=== PATIENT | male | born 1985 | race Caucasian/White ===

== ENCOUNTER 2020-12-21 08:48 | Inpatient (IN) | payer SELFPAY ==
[2020-12-21] VITALS (18 sets, daily range): BP systolic 95–152; BP diastolic 49–77
[~2020-12-21] VITALS: Ht 152.4 cm; Wt 62.1 kg
--- NOTE | 2020-12-21 08:48 | NUR ---
PT RC FROM THE STREET C/O ETOH "FOUND HIM LAYING IN THE PARKING LOT" PT IS AAOX0, NOT IN RESPIRATORY DISTRESS, HOOKED TO DIRECTOR PROCESS ENGINEERING AND O2 VIA NC AT 3LPM. KEPT RESTED AND COMFORTABLE. WILL CONTINUE TO MONITOR.
--- NOTE | 2020-12-21 09:20 | NUR ---
IV LINE ESTABLISHED BLOOD DRAWN AND SENT TO LAB.
[2020-12-21] MEDS ORDERED: IV NS 0.9% 1,000 ML BAG IV ONE (09:30)
[2020-12-21 09:32] LABS: BASOPHILS % (AUTO) 0.5 % (0.0-2.0); EOSINOPHILS % (AUTO) 0.1 % (0.0-6.0); HEMATOCRIT 28 % (39-51); HEMOGLOBIN 9.4 g/dL (13.5-17.5); LYMPHOCYTES # (AUTO) 0.5 K/uL (0.8-4.8); LYMPHOCYTES % (AUTO) 13.6 % (20.0-44.0); MEAN CORPUSCULAR HGB CONC 33 g/dl (31.0-36.0); MEAN CORPUSCULAR VOLUME 90 fL (80-96); MONOCYTES # (AUTO) 0.3 K/uL (0.1-1.30); MONOCYTES % (AUTO) 8.1 % (2.0-12.0); NEUTROPHILS # (AUTO) 2.6 K/uL (1.8-8.9); NEUTROPHILS % (AUTO) 77.7 % (43.0-81.0); RED BLOOD CELL COUNT(AUTO) 3.15 MIL/uL (4.5-6.0); WHITE BLOOD COUNT (AUTO) 3.4 K/uL (4.3-11.0)
[2020-12-21 09:35] LABS: PLATELET COUNT (AUTO) 13 K/uL (150-450)
--- NOTE | 2020-12-21 09:39 | NUR ---
PT IS WHEELED TO CT SCAN VIA [facility].
[2020-12-21 09:52] LABS: BILIRUBIN,DIRECT 1.2 mg/dL (0.0-0.2); BILIRUBIN,TOTAL 2.2 mg/dL (0.2-1.0); CALCIUM, SERUM 8.2 mg/dL (8.5-10.1); CREATININE 0.8 mg/dL (0.6-1.3); POTASSIUM 3.1 mmol/L (3.5-5.1); TOTAL PROTEIN, SERUM 8.1 g/dL (6.4-8.2)
[2020-12-21] MEDS ORDERED: PROPOFOL 100 ML ONE (09:55)
--- NOTE | 2020-12-21 09:58 | NUR ---
PROPOFOL 100MG IVP GIVEN PER .
--- NOTE | 2020-12-21 10:00 | NUR ---
INTUBATION DONE BY . ET SIZE 7.5, 26MM AT THE LIP. POSITIVE CHEST RISE, BREATHSOUND EQUAL BILATERALLY.
--- NOTE | 2020-12-21 10:25 | NUR ---
DR. PATTEN SPEAKING WITH DR. SHERMAN.
[2020-12-21] MEDS ORDERED: PROPOFOL 200 MG/20 ML VIAL IV ONE (10:30)
[2020-12-21] MEDS ORDERED: PROPOFOL 1,000 MG/100 ML BOTTLE IV ONE (10:30)
[2020-12-21] MEDS ORDERED: IV PREMIX D5 1/2NS + KCL 1,000 ML IV ONE ×2 (10:30→10:34)
--- NOTE | 2020-12-21 10:30 | NUR ---
PICC LINE RN AT BEDSIDE.
--- NOTE | 2020-12-21 10:30 | NUR ---
MOVE SHEET SUBMITTED AND CALLED FOR ICU BED.
--- NOTE | 2020-12-21 10:33 | NUR ---
[facility] CALLED TANK CREWMEMBER PAGED.
--- NOTE | 2020-12-21 10:41 | NUR ---
covid 19 swab collected and sent to lab.
[2020-12-21 11:22] LABS: ABG BASE EXCESS -3.3 mmol/L; ABG OXYGEN SATURATION 98.9 % (92.0-98.5); ABG PCO2 30.3 mmHg (35.0-45.0); ABG PH 7.443 (7.350-7.450); ABG PO2 511.3 mmHg (75.0-100.0); AaDO2 171.4 mmHg; COHb 0.3 % (0.5-1.5); MetHb 0.6 % (0.0-1.5); PEEP,BG 5 cm H2O; SITE, ABG Right Radial; VENT MODE, BG AC 100%; VT, ABG 500 mL
[2020-12-21] MEDS ORDERED: ONDANSETRON HCL/PF 4 MG/2 ML VIAL IVP PRN (12:00)
[2020-12-21] MEDS ORDERED: MAGNESIUM HYDROXIDE 30 ML UDC PO PRN (12:00)
[2020-12-21] MEDS ORDERED: DEXAMETHASONE SOD PHOSPHATE 4 MG in IV D5W 50 ML IV SCH (12:00)
[2020-12-21] MEDS ORDERED: MAG HYDROX/AL HYDROX/SIMETH 30 ML UDC PO PRN (12:00)
[2020-12-21] MEDS ORDERED: ACETAMINOPHEN 325 MG TABLET PO PRN (12:00)
[2020-12-21] MEDS ORDERED: Z GUARD REMEDY 2 OZ OINT TP PRN (12:00)
[2020-12-21 12:06] LABS: LYMPHOCYTES % (MANUAL) 10 % (16-48); MONOCYTES % (MANUAL) 2 % (0-11.0); NEUTROPHILS % (MANUAL) 88 (42-76)
--- NOTE | 2020-12-21 12:22 | NUR ---
GOT ICU BED 254
--- NOTE | 2020-12-21 12:27 | NUR ---
REPORT GIVEN TO LORRAINE GOLDEN FOR LUPE. WITH ONGOING IVF AND PROPOFOL TITRATE TO EFFECT.
[2020-12-21] MEDS: DEXAMETHASONE SOD PHOSPHATE 4 MG/ML VIAL IV SCH ×3 (13:36→23:43)
[2020-12-21] MEDS: IV D5/0.45 NACL 1,000 ML IV PRN ×2 (13:36→22:40)
[2020-12-21] MEDS ORDERED: PROPOFOL 100 ML IV PRN (14:00)
[2020-12-21] MEDS ORDERED: PROPOFOL 10MG/ML 50ML 50 ML IV PRN (14:00)
--- NOTE | 2020-12-21 17:33 | NUR ---
RT Patient orally intubated with 7.0 ETT 26cm @ the lip in ER bed 8. (AC 16, 500,+5,100%). ETT pulled back to 22cm @ lip by MD Hogan post X ray. FI02 titrated to 30% per MD post ABG results. Patient tolerating current settings well. Ambu bag at bedside. Will continue to monitor throughout shift
[2020-12-21] MEDS ORDERED: DEXAMETHASONE SOD PHOSPHATE 4 MG/ML VIAL IV SCH (18:00)
--- NOTE | 2020-12-21 18:05 | NUR ---
RN NOTE 1300: Admitted patient from ED for SDH, herniated brain and alcohol toxicity. Clarke Matta, unknown medical histories and allergies. Alcohol level 202. Coma, no response to tactile stimuli. Noted with both arms decorticated. With ETT 7.5/26cm lipline, AC 16, 500, 30% +5. BIRD PICC intact. Diprivan @ 30mcg, will titrate as ordered. Noted with bleeding orally and some comes from nasal. Schaeffer cath intact, noted with clear yellow urine drained to BSD. Noted with both knees abrasion and scab and toes scabs. SR 90's on the monitor. On D5 1/2 NS with K. DCd and changed to D5 1/2 NS @ 100. 1800: Done with 1 FFP and 1 Platelet transfusions, tolerated, no any significant changes noted. VSS, still noted with oral bleeding.
--- NOTE | 2020-12-21 20:00 | NUR ---
ICU NOTES Received report and assessment done.Patient responsive to tactile stimuli.Both UE decorticating. Orally intubated to vent on full vent support.Tolerating vent settings well.Noted some bleeding orally and nasally secretions suctioned PRN.Hypothermic temp 95 rectally.Kept warm with Nixon Hugger.SR/ST 110.FC to gravity with clear yellow urine.IVF infusing to BIRD PICC line and site intact. Turned and repositioned.Continue monitoring.
--- NOTE | 2020-12-21 20:52 | NUR ---
RT pt received on mechanical vent with current vent settings. pt intubated with ett size 7.0. vent settings AC 16 500 30% +5. vent plugged in to red outlet. alarms on and audible. bloody red secretions suctioned via ett. notified ed, charge nurse, about possible ett leak. pt is not receiving adequate volume as well as air not being retained in ett balloon. gurgling can be heard from the pt's neck and vibration also can be felt when fingers are placed at the pt's neck. will prepare equipment and wait for
[2020-12-21] MEDS ORDERED: ROCURONIUM BROMIDE 50 MG/5 ML IV ONE (21:56)
--- NOTE | 2020-12-21 22:12 | NUR ---
RT ett changed from 7.0 to 7.5, 22 at lip. volume adequate. ambu bag at bedside. will continue to monitor
--- NOTE | 2020-12-21 22:25 | NUR ---
ICU NOTES 2100 Patient ET TUBE leaking per RT Padmini.Called ED md to change ET TUBE. 2155 Patient premedicated with Rocuronium [address]Kenrick Decker from ED. 2199 ET Tube changed by to ET TUBE size 7.5, LIP LINE 22.Moderate dark blood secretions suctioned.SPO2 96%. 0 Portable CXR done. 2229 Nixon Hugger off.Latest temp 98.5
[2020-12-22] VITALS (71 sets, daily range): BP systolic 77–118; BP diastolic 41–64
--- NOTE | 2020-12-22 | NUR ---
ICU NOTES Patient vomiting moderate amount dark blood.OGT inserted and connected to low intermittent suction. William Caputo DNP made aware.Bed bath rendered and complete linens changed.Turned and repositioned.
[2020-12-22 01:04] LABS: BASOPHILS % (AUTO) 0.1 % (0.0-2.0); EOSINOPHILS % (AUTO) 0.1 % (0.0-6.0); HEMATOCRIT 24 % (39-51); HEMOGLOBIN 7.8 g/dL (13.5-17.5); LYMPHOCYTES # (AUTO) 0.1 K/uL (0.8-4.8); LYMPHOCYTES % (AUTO) 9.7 % (20.0-44.0); MEAN CORPUSCULAR HGB CONC 33 g/dl (31.0-36.0); MEAN CORPUSCULAR VOLUME 90 fL (80-96); MONOCYTES % (AUTO) 4.8 % (2.0-12.0); NEUTROPHILS # (AUTO) 0.7 K/uL (1.8-8.9); NEUTROPHILS % (AUTO) 85.3 % (43.0-81.0); RED BLOOD CELL COUNT(AUTO) 2.62 MIL/uL (4.5-6.0)
[2020-12-22 01:15] LABS: ALBUMIN 2.3 g/dL (3.4-5.0); BILIRUBIN,TOTAL 2.4 mg/dL (0.2-1.0); CALCIUM, SERUM 8.3 mg/dL (8.5-10.1); CREATININE 0.9 mg/dL (0.6-1.3); TOTAL PROTEIN, SERUM 6.6 g/dL (6.4-8.2)
[2020-12-22 01:19] LABS: PLATELET COUNT (AUTO) 18 K/uL (150-450); WHITE BLOOD COUNT (AUTO) 0.8 K/uL (4.3-11.0)
--- NOTE | 2020-12-22 01:20 | NUR ---
ICU NOTES Patient lab resulted WBC 0.8,SODIUM 158,PLATELET 18 C Harshal SILVERIO here and made aware.No new orders received.
[2020-12-22 02:45] LABS: LYMPHOCYTES % (MANUAL) 10 % (16-48); MONOCYTES % (MANUAL) 5 % (0-11.0); NEUTROPHILS % (MANUAL) 85 (42-76)
[2020-12-22] MEDS ORDERED: ACETAMINOPHEN 650 MG/SUPP.RECT RC PRN (04:30)
[2020-12-22] MEDS: ACETAMINOPHEN 650 MG/SUPP.RECT RC PRN ×2 (04:32→13:01)
--- NOTE | 2020-12-22 04:35 | NUR ---
ICU NOTES Patient febrile 101.6 cooling measures done continuously.Tylenol suppository administered rectally as ordered. Turned and repositioned
[2020-12-22 05:33] LABS: BASOPHILS % (AUTO) 0.1 % (0.0-2.0); EOSINOPHILS % (AUTO) 0.2 % (0.0-6.0); HEMATOCRIT 23 % (39-51); HEMOGLOBIN 7.7 g/dL (13.5-17.5); LYMPHOCYTES # (AUTO) 0.1 K/uL (0.8-4.8); MEAN CORPUSCULAR HGB CONC 33 g/dl (31.0-36.0); MEAN CORPUSCULAR VOLUME 90 fL (80-96); MONOCYTES % (AUTO) 5.4 % (2.0-12.0); NEUTROPHILS # (AUTO) 0.6 K/uL (1.8-8.9); NEUTROPHILS % (AUTO) 80.3 % (43.0-81.0); RED BLOOD CELL COUNT(AUTO) 2.59 MIL/uL (4.5-6.0)
[2020-12-22] MEDS: DEXAMETHASONE SOD PHOSPHATE 4 MG/ML VIAL IV SCH ×3 (05:37→17:55)
[2020-12-22 05:53] LABS: CALCIUM, SERUM 8.2 mg/dL (8.5-10.1); CREATININE 1.1 mg/dL (0.6-1.3); MAGNESIUM 1.4 mg/dL (1.8-2.4); POTASSIUM 3.2 mmol/L (3.5-5.1)
[2020-12-22 05:57] LABS: PHOSPHORUS 0.8 mg/dL (2.5-4.9)
[2020-12-22 06:13] LABS: PLATELET COUNT (AUTO) 19 K/uL (150-450); WHITE BLOOD COUNT (AUTO) 0.7 K/uL (4.3-11.0)
--- NOTE | 2020-12-22 06:20 | NUR ---
ICU NOTES Patient temp 103.5 continuous cooling measures done.Called for cooling blanket.Tachycardic and tachypneic.Turned and repositioned.Patient AM abnormal labs NA+=158,PHOS=0.8, PLATELETS=19,WBC=0.7 called to William Caputo no new orders received.Continue to monitor. will endorse to day shift for LUPE.
[2020-12-22] MEDS: IV D5/0.45 NACL 1,000 ML IV PRN ×2 (07:27→21:17)
[2020-12-22] MEDS ORDERED: POTASSIUM CL. PREMIX PERIPHER. 50 ML IV SCH (08:00)
--- NOTE | 2020-12-22 08:01 | NUR ---
RT PATIENT REC'D ORALLY INTUBATED ON [facility] VENT IN CRITICAL CONDITION. VENT SETTINGS AND ALARMS CHECKED + AUDIBLE. ETT SECURE AND IN PROPER POSITION. AIRWAY SUCTIONED AND PATENT WITH LITTLE TO NO SECRETIONS. PATIENT NOT SEDATED, NON RESPONSIVE. AMBU BAG AT [facility]. Addendum: 12/23/20 at 1139 by GENTRY RAMACHANDRAN RT Amended: Links added.
--- NOTE | 2020-12-22 08:06 | NUR ---
RN NOTE 0715: Received patient in coma state. No response to tactile stimuli. ETT to vent, no respiratory distress noted at this time. ST 110's on the monitor. Temp 104.3, followed up with central supply for cooling blanket. OGT intact, to LIS, no residuals noted at this time, with 200mL bloody residuals from previous shift. On isolation prec for R/O Covid, maintained and observed. 0800: Informed Dr. Blackman for low BP 78/42, awaiting new order. Informed re: Phos 0.8 deferred by pharmacy, awaiting for order. K and Mg to be replaced.
[2020-12-22] MEDS: Magnesium 1GM/D5W 100ML PREMIX 100 ML IV SCH ×4 (08:19→11:20)
[2020-12-22] MEDS ORDERED: PHENYLEPHRINE 50 MG in IV NS 0.9% 245 ML IV PRN (08:30)
--- NOTE | 2020-12-22 08:54 | NUR ---
RN NOTE 0840: S/E by Dr. Blackman, made aware still no notes from Neuro or NeuroSx. 0850: Started on cooling blanket for 104.9.
[2020-12-22] MEDS ORDERED: POTASSIUM PHOSPHATE MM 15 MMOL in IV NS 0.9% 250 ML IV SCH (09:30)
[2020-12-22] MEDS ORDERED: PIPERACILLIN /TAZOBACTAM 3.375 G in IV D5W 50 ML IV ONE (10:00)
[2020-12-22] MEDS: NOREPINEPHRINE 8 MG in IV NS 0.9% 242 ML IV PRN (10:48)
--- NOTE | 2020-12-22 11:16 | NUR ---
RN NOTE S/E by Dr. Sutherland and aminata Delaney, both MDs agreed for transfer to [facility]. Addendum: 12/22/20 at 1117 by CHANTEL HOUSE RN disregard, note for different patient
--- NOTE | 2020-12-22 11:17 | NUR ---
RN NOTE S/E by Dr. Sutherland, with order to use Vaso as pressors and may titrate Levo off due to ST 120's.
[2020-12-22] MEDS ORDERED: PANTOPRAZOLE 80 MG in IV NS 0.9% 100 ML IV ONE (12:30)
[2020-12-22] MEDS: LEVETIRACETAM (500MG) 1,000 MG in IV NS 0.9% 100 ML IV SCH ×2 (12:48→21:18)
[2020-12-22] MEDS: OCTREOTIDE 500 MCG in IV NS 0.9% 99 ML IV PRN ×3 (12:48→21:54)
[2020-12-22] MEDS: PHENYLEPHRINE 100 MG in IV NS 0.9% 240 ML IV PRN ×2 (13:38→21:14)
[2020-12-22] MEDS: PANTOPRAZOLE 80 MG in IV NS 0.9% 500 ML IV PRN (13:54)
[2020-12-22] MEDS: PIPERACILLIN /TAZOBACTAM 3.375 G in IV D5W 100 ML IV SCH (16:09)
[2020-12-22] MEDS ORDERED: OCTREOTIDE 500 MCG/ML VIAL ONE (20:42)
--- NOTE | 2020-12-22 23:38 | NUR ---
PATIENT IS NOT RESPONSIVE HAS ET-TUBE 7.5/26CM AC 16, TV 500, FI02 30%, PEEP 5. SAT 98%. LUNGS DIMINISHED PATIENT SINUS TACH ON MONITOR 115 HEART RATE. PATIENT HAS RIGHT UPPER PICC LINE AND LEFT HAND 20GA, 18GA IN RIGHT HAND. D51/2NS 100 HR. MARGOT. INFUSING AT 3MCG, LEVOPHED AT 0.1 MCG, SANDOSTATIN 10CC HR, PROTONIX AT 50 HR. PATIENT HAS F/C 300 OUT AT THIS TIME NO BOWEL MOVEMENT.NO BREAK DOWN OF SKIN AT SACRAL SITE HAS SOARS ON BOTH KNEES AND SCABS ON TOES.
[2020-12-23] VITALS (96 sets, daily range): BP systolic 40–125; BP diastolic 13–72
[2020-12-23] MEDS: PANTOPRAZOLE 80 MG in IV NS 0.9% 500 ML IV PRN (00:16)
[2020-12-23] MEDS: PIPERACILLIN /TAZOBACTAM 3.375 G in IV D5W 100 ML IV SCH ×4 (00:17→23:43)
[2020-12-23] MEDS: DEXAMETHASONE SOD PHOSPHATE 4 MG/ML VIAL IV SCH ×5 (00:17→23:42)
[2020-12-23] MEDS: NOREPINEPHRINE 8 MG in IV NS 0.9% 242 ML IV PRN ×2 (03:07→11:18)
[2020-12-23 04:44] LABS: BASOPHILS % (AUTO) 0.9 % (0.0-2.0); EOSINOPHILS % (AUTO) 6.7 % (0.0-6.0); HEMATOCRIT 22 % (39-51); LYMPHOCYTES # (AUTO) 0.3 K/uL (0.8-4.8); LYMPHOCYTES % (AUTO) 56.9 % (20.0-44.0); MEAN CORPUSCULAR HGB CONC 31 g/dl (31.0-36.0); MEAN CORPUSCULAR VOLUME 96 fL (80-96); MONOCYTES % (AUTO) 6.6 % (2.0-12.0); NEUTROPHILS # (AUTO) 0.2 K/uL (1.8-8.9); NEUTROPHILS % (AUTO) 28.9 % (43.0-81.0); RED BLOOD CELL COUNT(AUTO) 2.26 MIL/uL (4.5-6.0)
[2020-12-23 04:52] LABS: BILIRUBIN,URINE MODERATE (NEGATIVE); COLOR,URINE DARK YELLOW (YELLOW); LEUKOCYTE ESTERASE ,URINE TRACE (NEGATIVE); NITRITE, URINE POSITIVE (NEGATIVE); PH,URINE 5.5 (5.0-8.0); PROTEIN,URINE 30 mg/dl (NEGATIVE); UGLUCOSE NEGATIVE (NEGATIVE)
[2020-12-23 04:53] LABS: CALCIUM, SERUM 6.8 mg/dL (8.5-10.1); CREATININE 1.8 mg/dL (0.6-1.3); MAGNESIUM 2.2 mg/dL (1.8-2.4)
[2020-12-23 05:04] LABS: OCCULT BLOOD STOOL POSITIVE (NEGATIVE)
[2020-12-23 05:07] LABS: BACTERIA,URINE Many /HPF (None Seen); RBC,URINE 21-50 /HPF (0-2); SQUAMOUS EPITHELIAL CELL,UR Few /HPF (None Seen); WBC,URINE 0-2 /HPF (0-3)
[2020-12-23 05:16] LABS: WHITE BLOOD COUNT (AUTO) 0.5 K/uL (4.3-11.0)
[2020-12-23 05:17] LABS: HEMOGLOBIN 6.8 g/dL (13.5-17.5); PLATELET COUNT (AUTO) 12 K/uL (150-450)
[2020-12-23] MEDS: PHENYLEPHRINE 100 MG in IV NS 0.9% 240 ML IV PRN ×2 (05:31→15:30)
[2020-12-23 05:40] LABS: POTASSIUM 2.7 mmol/L (3.5-5.1)
--- NOTE | 2020-12-23 05:49 | NUR ---
at 0545 b/ down to 79/48 increase levophed to 0.2mcg/kg/min 0600 b/p 106/61.
[2020-12-23] MEDS: POTASSIUM CL. PREMIX PERIPHER. 50 ML IV SCH ×6 (06:43→12:36)
--- NOTE | 2020-12-23 06:44 | NUR ---
hung #1 bag of 10 darling kcl at 0643 at 50 hr. patient to receive x 5 more bag toltal of 60 darling.
--- NOTE | 2020-12-23 07:50 | NUR ---
RT PATIENT REC'D ORALLY INTUBATED ON [facility] VENT IN CRITICAL CONDITION. VENT SETTINGS AND ALARMS CHECKED + AUDIBLE. ETT SECURE AND IN PROPER POSITION. AIRWAY SUCTIONED AND PATENT WITH LITTLE TO NO SECRETIONS. PATIENT NOT SEDATED, NON RESPONSIVE. AMBU BAG AT [facility]. Addendum: 12/23/20 at 1139 by GENTRY RAMACHANDRAN RT Amended: Links added.
[2020-12-23] MEDS: IV D5/0.45 NACL 1,000 ML IV PRN ×2 (08:06→18:29)
[2020-12-23 08:15] LABS: ABG BASE EXCESS -11.4 mmol/L; ABG OXYGEN SATURATION 88.2 % (92.0-98.5); ABG PCO2 34.4 mmHg (35.0-45.0); ABG PH 7.251 (7.350-7.450); ABG PO2 67.3 mmHg (75.0-100.0); AaDO2 106.2 mmHg; COHb 0.6 % (0.5-1.5); MetHb 0.7 % (0.0-1.5); O2Hb 87.1 % (94.0-97.0); SITE, ABG Right Radial
[2020-12-23] MEDS: OCTREOTIDE 500 MCG in IV NS 0.9% 99 ML IV PRN ×3 (08:27→20:22)
[2020-12-23] MEDS: LEVETIRACETAM (500MG) 1,000 MG in IV NS 0.9% 100 ML IV SCH ×2 (09:08→20:47)
[2020-12-23 10:43] LABS: EOSINOPHILS % (MANUAL) 4 % (0-4); LYMPHOCYTES % (MANUAL) 60 % (16-48); MONOCYTES % (MANUAL) 8 % (0-11.0); NEUTROPHILS % (MANUAL) 28 (42-76)
[2020-12-23] MEDS: BLOOD SUGAR DIAGNOSTIC 1 EACH STRIP IN SCH ×2 (12:36→17:54)
--- NOTE | 2020-12-23 13:00 | NUR ---
rn notes started blood one unit at this time, bp 72/43, p-125, r-22, t-97.8F, o2095% ETT /vent setting, no acute respiratory distress, will monitoring.
--- NOTE | 2020-12-23 13:20 | NUR ---
rn notes increased blood infusion 125 ml/hr, t-97.8, p-112, r-22, bp-94/52. patient ETT /vent setting, increased fio2-60% via RT, will monitoring.
--- NOTE | 2020-12-23 14:30 | NUR ---
Private Duty Nurse note: Social service consult requested for stroke, homelessness and to locate identification. Patient is a 35-year-old, male. Per charge nurse, Brannon the patient is currently intubated and unresponsive. SW was unable to interview the patient and assess his need for community resources. SW and charge nurse Brannon were only able to locate the patient's shoes and socks which were placed in a bag on the unit. SW was unable to locate a source of identification for the patient. No further SS intervention at this time, however, SS will remain available as needed.
[2020-12-23] MEDS: NOREPINEPHRINE 32 MG in IV NS 0.9% 250 ML IV PRN ×2 (15:26→22:45)
[2020-12-23] MEDS ORDERED: NOREPINEPHRINE 32 MG in IV NS 0.9% 218 ML IV PRN (15:30)
[2020-12-23] MEDS ORDERED: ROCURONIUM BROMIDE 50 MG/5 ML IV ONE (15:39)
[2020-12-23] MEDS: VASOPRESSIN INJ 40 UNIT in IV NS 0.9% 38 ML IV PRN (17:03)
--- NOTE | 2020-12-23 17:12 | NUR ---
rn notes end blood infusion at this time bp 76/50, started vasopressin 0.01 units /hr . fio2-100. will monitoring.
--- NOTE | 2020-12-23 17:44 | NUR ---
RT PATIENT REMAINS ORALLY INTUBATED ON [facility] VENT IN CRITICAL CONDITION. FIO2 INCREASED TO 100% FOR DESATURATION. Addendum: 12/23/20 at 1745 by GENTRY RAMACHANDRAN RT Amended: Links added.
--- NOTE | 2020-12-23 18:00 | NUR ---
RN NOTES NEURO ASSESSMENT DONE PATIENT FIXED EYE OBTUNDED, NON RESPONSIVE, NOT MOVING, NO EDEMA, INCREASED VASOPRESSIN 0.03 BP 75/ 46, PATIENT FIO2-100. DUE MEDICATION ADMINISTERED, PM CARE DONE, PATIENT HAS BM X2 BILE -GREEN COLOR . PATIENT PRONE TO BLEED EACH TIME TRYING TO REPOSITION. HOB ELEVATED 35 DEGREE. DUNN DRAINING DARK RED 130 ML OF URINE DURING SHIFT, INFUSING MARGOT 3 MCG/KG/HR, LEVO 1MCG/KG/HR, VASOPRESSIN 0.03, D5 1/2 NS AT 100 ML/HR, ZOSYN 25ML/HR, SANDOSTATIN 10 ML/HR ON RIGHT PICC LINE INTACT. ENDORSED ONCOMING NURSE FALLOW PLAN OF CARE.
--- NOTE | 2020-12-23 19:45 | NUR ---
ICU/HARD ROCK DRILL OPERATOR RECIEVED REPORT FROM DAY NURSE. SEE FLOWSHEET FOR ASSESSMENT, ALONG WITH IV SPREAD SHEET FOR TITRATIONS TO PRESSORS AND OTHER IV'S. WILL CONTINUE TO MONITOR THIS PT.
--- NOTE | 2020-12-23 20:10 | NUR ---
ICU/PRECISION DEVICES INSPECTOR/TESTER INCREASED PITRESSIN FOR LOW BLOOD PRESSURE 70'S BY SOCIAL SCIENCES LECTURER NURSE. NOW ALL 3 BLOOD PRESSURES ARE NOW MAXED OUT. WILL MONITOR THIS PT'S BP.
--- NOTE | 2020-12-23 20:45 | NUR ---
ICU/SCAFFOLD SETTER JOANNE TALAMANTES WAS PLACED ON PT FOR LOW TEMP OF 96.6. WILL MONITOR THIS PT'S TEMP.
[2020-12-23] MEDS ORDERED: PANTOPRAZOLE 40 MG VIAL IV SCH (21:00)
--- NOTE | 2020-12-23 23:10 | NUR ---
ICU/MACHINE TOOL BUILDER TRIED TO GET A BLOOD PRESSURE, TIRED TO SWITCH THE BLOOD PRESSURE CUFF TO DIFFERENT ARMS HOWEVER WAS UNSUCCESSFUL. WILL KEEP TRYING. RESEARCH ENGINEER NURSE MADE AWARE OF THIS.
[2020-12-24] VITALS: BP_SYST 76
[2020-12-24] MEDS: BLOOD SUGAR DIAGNOSTIC 1 EACH STRIP IN SCH (00:01)
[2020-12-24] MEDS: PHENYLEPHRINE 100 MG in IV NS 0.9% 240 ML IV PRN (00:01)
--- NOTE | 2020-12-24 00:20 | NUR ---
ICU/FLAT FINISHER BLOOD PRESSURE IS DONE WITH MANUAL CUFF AND DOPPLER TO GET A SYSTOLIC READ ON THE BP. PT IS MAXED OUT ON THREE PRESSORS. WILL CONTINUE TO MONITOR THIS PT.
[2020-12-24 01:00] VITALS: BP_SYST 72
--- NOTE | 2020-12-24 01:25 | NUR ---
ICU/DIESEL SCOOP OPERATOR BLOOD PRESSURE IS DONE WITH MANUAL CUFF AND DOPPLER TO GET A SYSTOLIC READ ON THE BP. PT IS MAXED OUT ON THREE PRESSORS. WILL CONTINUE TO MONITOR THIS PT.
[2020-12-24 02:00] VITALS: BP_SYST 70
--- NOTE | 2020-12-24 02:10 | NUR ---
ICU/PHOTOCOPYING MACHINE OPERATOR BLOOD PRESSURE IS DONE WITH MANUAL CUFF AND DOPPLER TO GET A SYSTOLIC READ ON THE BP. PT IS MAXED OUT ON THREE PRESSORS. WILL CONTINUE TO MONITOR THIS PT.
[2020-12-24 03:00] VITALS: BP_SYST 68
--- NOTE | 2020-12-24 03:23 | NUR ---
ICU/MACHINE TOOL REBUILDER BLOOD PRESSURE IS DONE WITH MANUAL CUFF AND DOPPLER TO GET A SYSTOLIC READ ON THE BP. PT IS MAXED OUT ON THREE PRESSORS. WILL CONTINUE TO MONITOR THIS PT.
[2020-12-24] MEDS: IV D5/0.45 NACL 1,000 ML IV PRN (03:36)
[2020-12-24 03:46] VITALS: BP_SYST 68
[2020-12-24] MEDS: VASOPRESSIN INJ 40 UNIT in IV NS 0.9% 38 ML IV PRN (03:46)
[2020-12-24] MEDS ORDERED: EPINEPHRINE (1:10,000) SYRINGE 1 MG/10 ML DISP.SYRIN IVP ONE (04:16)
--- NOTE | 2020-12-24 04:30 | NUR ---
ICU/TOWER CRANE OPERATOR 0404-PT JUNE DOWN TO 30'S THEN WENT ASYSTOLE. CODE BLUE WAS CALLED WITH ER MD RESPOND, ALONG WITH RT'S. 0417-CODE ENDED WITH PT . 0425- RECORD WAS FILLED OUT. 0435-CORONERS CASE WAS OPEN, DUE TO THIS WAS A [place] DE [place]. 0440-BODY WAS TAKEN DOWN TO [facility]. 0445-COPY OF THE CHART MADE FOR [facility]. 0450-HOUSE SUP. MADE AWARE OF THIS BEING A CORONERS CASE.
== END 2020-12-24 04:17 | DRG 64 ==
LOC: ER 09:17 → ICU 12:27
PROVIDERS: ADMIT Internal Medicine; ATTEND Registered Nurse
PROC: 30233K1 Transfusion of Nonautologous Frozen Plasma into Peripheral Vein, Percutaneous Approach (ICD-10-PCS; 2020-12-21)
PROC: 30233R1 Transfusion of Nonautologous Platelets into Peripheral Vein, Percutaneous Approach (ICD-10-PCS; 2020-12-21)
PROC: 02HV33Z Insertion of Infusion Device into Superior Vena Cava, Percutaneous Approach (ICD-10-PCS; 2020-12-21)
PROC: B548ZZA Ultrasonography of Superior Vena Cava, Guidance (ICD-10-PCS; 2020-12-21)
PROC: 5A1945Z Respiratory Ventilation, 24-96 Consecutive Hours (ICD-10-PCS; principal; 2020-12-23)
PROC: 0BH18EZ Insertion of Endotracheal Airway into Trachea, Via Natural or Artificial Opening Endoscopic (ICD-10-PCS; 2020-12-23)
PROC: 30233N1 Transfusion of Nonautologous Red Blood Cells into Peripheral Vein, Percutaneous Approach (ICD-10-PCS; 2020-12-23)
PROC: 5A12012 Performance of Cardiac Output, Single, Manual (ICD-10-PCS; 2020-12-24)
DX: I62.00 Nontraumatic subdural hemorrhage, unspecified (principal); E43 Unspecified severe protein-calorie malnutrition; N17.0 Acute kidney failure with tubular necrosis; J96.90 Respiratory failure, unspecified, unspecified whether with hypoxia or hypercapnia; D61.818 Other pancytopenia; E87.0 Hyperosmolality and hypernatremia; E87.2 Acidosis; R57.9 Shock, unspecified; Z59.0 Homelessness; F10.129 Alcohol abuse with intoxication, unspecified; Y90.7 Blood alcohol level of 200-239 mg/100 ml; E83.39 Other disorders of phosphorus metabolism; E86.1 Hypovolemia; E87.6 Hypokalemia; I60.9 Nontraumatic subarachnoid hemorrhage, unspecified; R74.01 Elevation of levels of liver transaminase levels; E80.6 Other disorders of bilirubin metabolism; K70.30 Alcoholic cirrhosis of liver without ascites; E88.09 Other disorders of plasma-protein metabolism, not elsewhere classified; Z68.26 Body mass index [BMI] 26.0-26.9, adult; I49.01 Ventricular fibrillation
CPT/HCPCS: 31720; 36415; 36569; 36600; 70450-TC; 71045-TC; 76705-TC; 80048-TC; 80053-TC; 80076-TC; 81001; 82272-TC; 82803-TC; 82962-TC; 83735-TC; 84100-TC; 85025-TC; 85730-TC; 86850-TC; 87081-TC; 87086-TC; 87186-TC; 87806; 92950-TC; 94002-TC; 94003-TC; 94760-TC; 94799-TC; 95819-TC; C9113; C9803; G0378; G0480; J0171; J1100; J1953; J2354; J2370; J2543; J3475; J3480; J3490; J7030; J7040; J7050; J7060; P9016; P9017; P9034; U0003